=== PATIENT | female | born 1985 | race Caucasian/White ===

== ENCOUNTER 2018-05-18 06:21 | Day surgery (SDC) | payer OTHER ==
[2018-05-16 16:35] VITALS: BMI 20.9
[2018-05-18] MEDS ORDERED: ONDANSETRON 4 MG/2 ML VIAL ONE (06:56)
[2018-05-18] MEDS ORDERED: MIDAZOLAM HCL 2 MG/2 ML SINGLE DOSE VIAL ONE (06:56)
[2018-05-18] MEDS ORDERED: PROPOFOL 20 ML ONE ×2 (06:56)
[2018-05-18] MEDS ORDERED: SUCCINYLCHOLINE CHLORIDE 200 MG/10 ML VIAL ONE (06:56)
[2018-05-18] MEDS ORDERED: DEXAMETHASONE SOD PHOSPHATE 4 MG/1 ML VIAL ONE (06:56)
[2018-05-18] MEDS ORDERED: SEVOFLURANE 250 ML BTL ONE (07:49)
[2018-05-18] MEDS ORDERED: DESFLURANE GAS 240 ML BOTTLE IH ONE (07:49)
[2018-05-18] MEDS ORDERED: KETOROLAC TROMETHAMINE 30 MG/1 ML VIAL ONE ×2 (07:50→08:37)
[2018-05-18] MEDS ORDERED: ACETAMINOPHEN INJECTION 100 ML IVPB ONE (07:52)
[2018-05-18] MEDS ORDERED: oxyCODONE HCL 5 MG TABLET PO PRN (08:56)
[2018-05-18] MEDS ORDERED: DOXYCYCLINE HYCLATE 100 MG CAPSULE PO ONE (08:58)
[2018-05-18] MEDS ORDERED: LACTATED RINGERS SOLUTION 1,000 ML IV SCH (09:00)
--- NOTE | 2018-05-18 10:11 | OP ---
DATE OF OPERATION: 05/18/2018 ATTENDING SURGEON: David Noel MD ER TECH: Susan Chung MD PREOPERATIVE DIAGNOSIS: Missed . POSTOPERATIVE DIAGNOSIS: Missed . PROCEDURE: Suction dilation and curettage. ESTIMATED BLOOD LOSS: 25 mL. URINE OUTPUT: 100 mL. FLUIDS IN: 900 mL. ANESTHESIA: General anesthesia with LMA. FINDINGS: A small retroverted uterus was noted and products of conception removed until uterine lining had a gritty texture and no further tissue was extracted. DRAINS AND LINES: None. PATHOLOGY: Products of conception sent to Pathology and also a portion for cytogenetics and microarray. DESCRIPTION OF PROCEDURE: The patient was brought to the operating room where general anesthesia was induced. She was prepped and draped in normal sterile fashion in dorsal lithotomy position. Following time-out, the bladder was emptied with a red rubber catheter for 100 mL of urine. A speculum was then placed, and tenaculum was used to grasp the anterior lip of the cervix. The cervix was then dilated to a 16-British using Jerry dilators, and a 7 rigid curved suction curette was advanced into the uterus up to the fundus. This was then attached to the suction and the uterus was cleaned of all tissue and products of conception. Following the suction curettage, a sharp curettage was performed gently in order to confirm that there were no further products of conception. A gritty texture was noted in all 4 quadrants. The speculum and all instruments were then removed. The tenaculum site was observed and pressure held in order to gain hemostasis. At the end of the case, hemostasis was excellent. Counts were correct x2. Patient was brought to the recovery room in stable condition. Dr. Noel was present and scrubbed for the entire procedure along with fellow Susan Chung MD. This operative dictation was completed by Susan Chung MD. DAVID NOEL M.D. MAYCOL/[id number]
[2018-05-18 11:02] VITALS: TEMP 98
[2018-05-18 11:52] VITALS: BP 97/65; PULSE 86
--- NOTE | 2018-05-19 15:05 | PATH ---
Surgical Pathology Report Patient Name: DENIS JAMES [facility]. Rec. #: [id number] /Age/Gender: 1985 (Age: 32) / F Account: [id number] Location: [facility] Taken: 05/18/2018 Received: 05/18/2018 Reported: 05/19/2018 Physicians: David Noel M.D. Specimen(s) Received A: PRODUCTS OF CONCEPTION B: PRODUCTS OF CONCEPTION FOR CYTOGENETIC TESTING Clinical History 32 year old with second loss-she has a missed Final Diagnosis A,b. products of conception, suction dilatATion and curettage: Chorionic villi, trophoblastic tissue, decidua and hyper-secretory endometrium, consistent with products of conception. Comment: Fresh tissue was sent to reference laboratory for chromosome analysis with microarray. The results will be reported in an addendum when available. Electronically Signed Renate Elizabeth M.D. Gross Description A. Received in formalin labeled "products of conception," is a 5.5 x 5.0 x 0.3 cm aggregate of finn-pink soft tissue fragments. No definite villous tissue or somatic tissue is identified. Feed Weigher portions are submitted in 3 cassettes. B. Additional tissue is received in RPMI solution which is sent for chromosomal analysis. 05/18/2018 saudi05/18/2018
== END 2018-05-18 10:55 | disposition home or self-care (01) ==
LOC: FASU 06:21
PROVIDERS: ATTEND Obstetrics & Gynecology Reproductive Endocrinology
PROC: 10D17ZZ Extraction of Products of Conception, Retained, Via Natural or Artificial Opening (ICD-10-PCS; principal; 2018-05-18 08:28)
DX: O02.1 Missed abortion (principal)
CPT/HCPCS: 84703; 94760; J0131